=== PATIENT | female | born 1970 | race Caucasian/White ===

== ENCOUNTER 2019-01-15 19:39 | Emergency (ER) | payer MEDICAID ==
[~2019-01-15] VITALS: Ht 154.9 cm; Wt 78.1 kg
[2019-01-15 19:48] VITALS: BP 167/89
--- NOTE | 2019-01-15 20:20 | NUR ---
BG 115. AWARE.
[2019-01-15] MEDS ORDERED: ACETAMINOPHEN W/ CODEINE#3 1 EA TABLET ONE (20:27)
[2019-01-15] MEDS ORDERED: ACETAMINOPHEN W/ CODEINE#3 1 EA TABLET PO ONE (20:30)
== END 2019-01-15 20:33 | disposition home or self-care (01) ==
LOC: ER 19:45
DX: H10.89 Other conjunctivitis (principal); L30.9 Dermatitis, unspecified; I10 Essential (primary) hypertension
CPT/HCPCS: 82962-TC

== ENCOUNTER 2019-03-16 12:25 | Emergency (ER) | payer MEDICAID ==
[~2019-03-16] VITALS: Ht 160 cm; Wt 72.6 kg
--- NOTE | 2019-03-16 12:41 | NUR ---
PATIENT C/O LT KNEE PAIN/SWELLING, NON TRAUMATIC PER PT.PATIENT AXOX4.NO SOB NO DISTRESS NOTED.PAIN ON LT KNEE 12/29.
[2019-03-16] MEDS ORDERED: KETOROLAC TROMETHAMINE INJ 60 MG/2 ML VIAL IM ONE ×2 (13:00→13:30)
[2019-03-16] MEDS ORDERED: ACETAMINOPHEN ES 500 MG TABLET PO ONE (13:00)
[2019-03-16] MEDS ORDERED: IPRATROPIUM NEB FS 0.5 MG/2.5 ML AMPUL.NEB NEB ONE (13:00)
[2019-03-16] MEDS ORDERED: ALBUTEROL FS 2.5 MG/3 ML VIAL.NEB CONTNEB ONE (13:00)
[2019-03-16] MEDS ORDERED: KETOROLAC TROMETHAMINE INJ 30 MG/ML VIAL ONE ×2 (13:01→13:20)
[2019-03-16] MEDS ORDERED: ACETAMINOPHEN ES 500 MG TABLET ONE (13:01)
[2019-03-16] MEDS ORDERED: HYDROCODONE/APAP 5/325MG 1 EACH TABLET ONE (13:21)
[2019-03-16] MEDS ORDERED: HYDROCODONE/APAP 5/325MG 1 EACH TABLET PO ONE (13:30)
--- NOTE | 2019-03-16 13:45 | NUR ---
PATIENT'S SYMPTOMS IMPROVED .PAIN LEVEL 4/10.
--- NOTE | 2019-03-16 14:20 | NUR ---
GOT DISCHARGE ORDER FROM DOCTOR.
[2019-03-16 14:25] VITALS: BP 153/81
--- NOTE | 2019-03-16 14:39 | NUR ---
Patient discharged to home in stable condition with knee immobilizer and walker. Written and verbal after care instructions given about new meds and folow up. Patient verbalizes understanding of instruction.result of image given in CD.
== END 2019-03-16 14:39 | disposition home or self-care (01) ==
LOC: ER 12:26
DX: M25.562 Pain in left knee (principal); I10 Essential (primary) hypertension; X58.XXXA Exposure to other specified factors, initial encounter; Y93.89 Activity, other specified; Y92.89 Other specified places as the place of occurrence of the external cause; Y99.8 Other external cause status
CPT/HCPCS: 29505; 73564; 96372; 99283; J1885

== ENCOUNTER 2019-04-25 18:25 | Emergency (ER) | payer MEDICAID ==
[~2019-04-25] VITALS: Ht 165.1 cm; Wt 86.2 kg
--- NOTE | 2019-04-25 18:48 | NUR ---
PT CAME TO ER BED 5 VIA RA C/O HEADACHE. PT STATES THAT SHE WAS AT HOME WHEN SHE FELT A HEADACHE AND SHE CHECKED HER THAT HER BLOOD PRESSURE WAS HIGH. AAOX4. NO SOB. BREATHING EVENLY AND UNLABORED ON ROOM AIR. CONNECTED TO MONITOR.
[2019-04-25] MEDS ORDERED: diphenhydrAMINE HCL 50 MG/ML VIAL ONE (18:49)
[2019-04-25] MEDS ORDERED: METOCLOPRAMIDE HCL 10 MG/2 ML VIAL ONE (18:49)
--- NOTE | 2019-04-25 18:53 | NUR ---
MARKETING RESEARCH COORDINATOR AT BEDSIDE FOR BLOOD DRAW
[2019-04-25 18:58] LABS: BASOPHILS # (AUTO) 0.1 /CMM (0.0-0.2); BASOPHILS % (AUTO) 1.2 % (0.0-2.0); EOSINOPHILS % (AUTO) 0.3 % (0.0-6.0); HEMATOCRIT 40 % (33-45); HEMOGLOBIN 13.3 g/dL (11.5-14.8); LYMPHOCYTES % (AUTO) 19.6 % (20.0-44.0); MEAN CORPUSCULAR HGB CONC 34 g/dl (31.0-36.0); MEAN CORPUSCULAR VOLUME 83 fL (82-100); MONOCYTES # (AUTO) 0.4 /CMM (0.1-1.30); MONOCYTES % (AUTO) 8.8 % (2.0-12.0); NEUTROPHILS # (AUTO) 3.5 /CMM (1.8-8.9); NEUTROPHILS % (AUTO) 70.1 % (43.0-81.0); PLATELET COUNT (AUTO) 121 /CMM (150-450); RED BLOOD CELL COUNT(AUTO) 4.76 MIL/uL (4.0-5.2); WHITE BLOOD COUNT (AUTO) 4.9 K/uL (4.3-11.0)
[2019-04-25] MEDS ORDERED: diphenhydrAMINE HCL 50 MG/ML VIAL IV ONE (19:00)
[2019-04-25] MEDS ORDERED: METOCLOPRAMIDE HCL 10 MG/2 ML VIAL IV ONE (19:00)
[2019-04-25] MEDS ORDERED: IV NS 0.9% 1,000 ML BAG IV ONE (19:00)
[2019-04-25 19:19] LABS: CALCIUM, SERUM 8.7 mg/dL (8.5-10.1); CREATININE 0.5 mg/dL (0.6-1.3); POTASSIUM 3.3 mmol/L (3.5-5.1)
[2019-04-25] MEDS ORDERED: KETOROLAC TROMETHAMINE INJ 30 MG/ML VIAL ONE (19:59)
[2019-04-25] MEDS ORDERED: KETOROLAC TROMETHAMINE INJ 30 MG/ML VIAL IV ONE (20:00)
[2019-04-25 20:10] VITALS: BP 144/76
--- NOTE | 2019-04-25 20:10 | NUR ---
Patient discharged to home in stable condition. Written and verbal after care instructions given. Patient verbalizes understanding of instruction.
== END 2019-04-25 20:10 | disposition home or self-care (01) ==
LOC: ER 18:26
DX: R51 Headache (principal); I10 Essential (primary) hypertension; Z91.14 Patient's other noncompliance with medication regimen
CPT/HCPCS: 36415; 70450; 80048; 85025; 96374; 96375; 99284; J1200; J1885; J2765; J7030